=== PATIENT | female | born 1985 | race Hispanic/Latino ===

== ENCOUNTER 2017-12-07 22:45 | Emergency (ER) | payer BC ==
[2017-12-07 22:54] VITALS: BMI 20.3
[2017-12-07] MEDS ORDERED: Sodium Chloride 0.9% 1,000 ML IV STA (23:00)
[2017-12-07] MEDS ORDERED: EPINEPHrine 1 mg/ml (1:1000) Inj SC ONE (23:00)
--- NOTE | 2017-12-07 23:03 | ED PDOC ---
Arrival/HPI - General Chief Complaint: Allergic Reaction Time Seen by Provider: 12/07/17 22:57 Historian: Patient - History of Present Illness Narrative History of Present Illness (Text): 12/07/17 22:59 Maria Caballero is a 32 year old female, with no significant past medical history , who presents to the Emergency department complaining of an allergic reaction prior to arrival. Patient states she began experiencing diffuse hives with associated bilateral eye swelling, nausea, and shakiness tonight. Patient notes she ate shrimp earlier this evening and was cleaning throughout the day. Patient is unsure what triggered the reaction. Patient states she took Benadryl 50 mg and Pepto Bismol at home prior to arrival. Patient denies any throat/lip swelling, wheezing, chest pain, abdominal pain, vomiting, diarrhea, headache, or any other complaints. Time/Duration: Other (tonight) Symptom Onset: Gradual Symptom Course: Unchanged Activities at Onset: Light Context: Home Past Medical History - Provider Review Nursing Documentation Reviewed: Yes Family/Social History - Physician Review Nursing Documentation Reviewed: Yes Family/Social History: Unknown Family HX Allergies/Home Meds Allergies/Adverse Reactions: Allergies No Known Allergies Allergy (Unverified 12/07/17 23:00) Review of Systems - Physician Review All systems were reviewed & negative as marked: Yes - Review of Systems Constitutional: Normal Eyes: Other (+bilateral eye swelling) ENT: Normal Respiratory: Normal Cardiovascular: Normal. absent: Chest Pain Gastrointestinal: Nausea. absent: Abdominal Pain Genitourinary Female: Normal. absent: Dysuria, Frequency, Hematuria, Urine Output Changes Musculoskeletal: Normal. absent: Back Pain, Neck Pain Skin: Rash (+diffuse hives) Neurological: Normal. absent: Headache, Dizziness Endocrine: Normal Hemo/Lymphatic: Normal Psychiatric: Normal Physical Exam Vital Signs Reviewed: Yes Vital Signs Pulse Resp BP Pulse Ox 12/08/17 00:12 69 18 102/57 L 99 Temperature: Afebrile Blood Pressure: Normal Pulse: Regular Respiratory Rate: Normal Appearance: Positive for: Well-Appearing, Non-Toxic, Comfortable Pain Distress: None Mental Status: Positive for: Alert and Oriented X 3 - Systems Exam Head: Present: Atraumatic, Normocephalic, Swelling (Edematous swelling to upper eyelids) Pupils: Present: PERRL Extroacular Muscles: Present: EOMI Conjunctiva: Present: Normal Ears: Present: Normal, NORMAL TM, Normal Canal. No: Erythema, TM Bulging, Fluid Mouth: Present: Moist Mucous Membranes Pharnyx: Present: Normal. No: ERYTHEMA, EXUDATE, TONSILS ENLARGED, Peritonsilar Swelling, Uvular Deviation, Muffled/Hoarse Voice, Strider, Soft Palate/Uvular Edema Nose (External): Present: Atraumatic Nose (Internal): Present: Normal Inspection Neck: Present: Normal Range of Motion (Supple). No: Meningeal Signs, MIDLINE TENDERNESS, Paraspinal Tenderness Respiratory/Chest: Present: Clear to Auscultation, Good Air Exchange. No: Respiratory Distress, Accessory Muscle Use Cardiovascular: Present: Regular Rate and Rhythm, Normal S1, S2. No: Murmurs Abdomen: No: Tenderness, Distention, Peritoneal Signs Back: Present: Normal Inspection. No: CVA Tenderness, Midline Tenderness, Paraspinal Tenderness Upper Extremity: Present: Normal Inspection. No: Cyanosis, Edema Lower Extremity: Present: Normal Inspection. No: Edema Neurological: Present: GCS=15, CN II-XII Intact, Speech Normal Skin: Present: Warm, Dry, Rashes (Diffuse scattered urticarial lesions to face, arms, thorax, and legs), Normal Color Psychiatric: Present: Alert, Oriented x 3, Normal Insight, Normal Concentration Medical Decision Making ED Course and Treatment: 12/07/17 22:59 Impression: 32 year old female presents complaining of an allergic reaction, with diffuse hives, bilateral eye swelling, and nausea. Differential Diagnosis included but are not limited to: allergic reaction Plan: -- Epinephrine -- Pepcid -- Solu-medrol -- Zofran -- IV fluids -- Reassess and disposition Progress Notes: 12/08/17 01:15 On re-evaluation, pt with symptomatic relief following treatment. Patient is stable for discharge. Patient was instructed to follow up with physician or return if symptoms worsen or new concerning symptoms arise. - Medication Orders Current Medication Orders: Discontinued Medications Epinephrine HCl (Epinephrine) 0.3 mg SC ONCE ONE Stop: 12/07/17 23:01 Last Admin: 12/07/17 23:05 Dose: 0.3 mg Subcutaneous Administrations Document 12/07/17 23:05 LORETTA (Rec: 12/07/17 23:26 [id number]) Injection Site MAR Injection Site Left Arm Charges for Administration # of Subcutaneous Administrations 1 Famotidine (Pepcid) 20 mg IVP STAT STA Stop: 12/07/17 23:01 Last Admin: 12/07/17 23:15 Dose: 20 mg IVP Administration Document 12/07/17 23:15 RG (Rec: 12/07/17 23:26 [id number] Charges for Administration # of IVP Administrations 1 Sodium Chloride (Sodium Chloride 0.9%) 1,000 mls @ 999 mls/hr IV .Q1H1M STA Stop: 12/08/17 00:00 Last Admin: 12/07/17 23:20 Dose: 999 mls/hr eMAR Start Stop Document 12/07/17 23:20 RG (Rec: 12/07/17 23:27 [id number] Intravenous Solution Start Date 12/07/17 Start Time 23:20 Methylprednisolone (Solu-Medrol) 125 mg IVP ONCE ONE Stop: 12/07/17 23:01 Last Admin: 12/07/17 23:16 Dose: 125 mg IVP Administration Document 12/07/17 23:16 RG (Rec: 12/07/17 23:26 [id number]) Charges for Administration # of IVP Administrations 1 Ondansetron HCl (Zofran Inj) 4 mg IVP ONCE ONE Stop: 12/07/17 23:01 Last Admin: 12/07/17 23:17 Dose: 4 mg IVP Administration Document 12/07/17 23:17 RG (Rec: 12/07/17 23:27 [id number] Charges for Administration # of IVP Administrations 1 - Scribe Statement The provider has reviewed the documentation as recorded by the Mark Anthony Cano Provider Scribe Attestation: All medical record entries made by the Scribe were at my direction and personally dictated by me. I have reviewed the chart and agree that the record accurately reflects my personal performance of the history, physical exam, medical decision making, and the department course for this patient. I have also personally directed, reviewed, and agree with the discharge instructions and disposition. Disposition/Present on Arrival - Present on Arrival Any Indicators Present on Arrival: No - Disposition Have Diagnosis and Disposition been Completed?: Yes Diagnosis: Allergic reaction, Urticaria Disposition: HOME/ ROUTINE Disposition Time: 01:10 Patient Plan: Discharge Patient Problems: Current Active Problems Problem Status Onset Allergic reaction Acute Urticaria Acute Condition: GOOD Discharge Instructions (ExitCare): Nuvia (MICHI) Additional Instructions: Take meds as prescribed/follow up with your doctor this week/any recurrent symptoms return to the emergency room Prescriptions: DiphenhydrAMINE [Benadryl] 50 mg PO Q6 PRN #24 cap PRN Reason: Itching / Pruritus predniSONE [Prednisone] 40 mg PO DAILY #10 tab Forms: [email or web address] (Lao)
[2017-12-08 00:13] VITALS: RESP 18
[2017-12-08 01:42] VITALS: BP 91/56; PULSE 66; O2SAT 98
== END 2017-12-08 01:15 | disposition home or self-care (01) ==
LOC: ED 22:45
DX: L50.0 Allergic urticaria (principal)
CPT/HCPCS: 96372; 96374; 96375; 99285; J0171; J2405; J2930; J7030